=== PATIENT | female | born 1970 | race Caucasian/White ===

== ENCOUNTER 2020-03-18 09:47 | Emergency (ER) | payer OTHER, SELFPAY ==
--- NOTE | ~2020-03-18 | XR_ITS ---
EXAMINATION: XR hip RT 2V w AP pelvis, XR knee RT min 4V, XR femur RT min 2V DATE: 03/18/2020 10:34 INDICATION: Right leg pain post hyperextension injury TECHNIQUE: 1. Anteroposterior view of the pelvis and anteroposterior, frog leg and cross-table lateral views of the right hip were obtained. 2. AP and lateral views of the right femur were obtained on overlapping proximal and distal images. 3. AP, left and right oblique and crosstable lateral views of the right knee were obtained. COMPARISON: None. FINDINGS: Bone alignment is normal in the pelvis and throughout the visualized right leg. No fracture. Right kn ee and bilateral hip joint spaces are normal. Moderate to severe spondylosis at the lumbosacral junct ion. Soft tissues are unremarkable. No right knee joint effusion. IMPRESSION: 1. No right knee joint effusion or acute osseous abnormality. Reviewed, dictated and finalized at location A. IMPRESSION: 1. No right knee joint effusion or acute osseous abnormality. IMPRESSION: 1. No right knee joint effusion or acute osseous abnormality.
--- NOTE | ~2020-03-18 | XR_ITS ---
EXAMINATION: XR lumbar spine 2-3V DATE: 03/18/2020 11:08 INDICATION: Low back pain post fall TECHNIQUE: Anteroposterior and lateral views of the lumbar spine, and cone-down lateral view of the l umbosacral junction were obtained. COMPARISON: None. FINDINGS: Alignment is normal. Vertebral body heights are normal. No evident fractures. Disc heights are normal . Moderate to severe facet osteoarthritis at L5-S1. Mild facet osteoarthritis the more cephalad lumba r spine. Minimal bilateral hip and sacroiliac osteoarthritis. IMPRESSION: 1. Lumbar facet osteoarthritis, moderate severity at the lumbosacral junction, otherwise mild. No dinora dent acute osseous abnormality. Reviewed, dictated and finalized at location A. IMPRESSION: 1. Lumbar facet osteoarthritis, moderate severity at the lumbosacral junction, otherwise mild. No evident acute osseous abnormality.
[2020-03-18 09:52] VITALS: BP 175/122; PULSE 86; RESP 18; TEMP 36.7; O2SAT 100
--- NOTE | 2020-03-18 10:10 | ED.GENADULT ---
HPI - General Adult General Chief complaint: Fall Stated complaint: Fall Time Seen by Provider: 03/18/20 10:10 Source: patient Mode of arrival: ambulatory Limitations: no limitations History of Present Illness HPI narrative: 49-year-old female patient presents to the [facility] with complaints of right knee pain. Patient states that this morning she was walking her dog and felt that her knee gave out and went backwards and she fell. Patient states that she did hit the left side of her face onto the concrete but denies losing consciousness. Patient continues to complain of pain and states that she feels that her right knee is unstable. Patient states that she is also having pain up her thigh and into her hip. Patient states that she was only able to get up after the fall with help. Patient states that she felt very unstable when trying to walk. Denies any numbness or tingling to the leg. Patient denies any neck or back pain. Patient states that her pain currently at rest is 2 out of 10. Patient states she did take some ibuprofen prior to arrival today. Related Data Home Medications Medication Instructions Recorded Confirmed citalopram 20 mg PO 03/18/20 hydrochlorothiazide 12.5 mg PO 03/18/20 losartan 100 mg PO 03/18/20 Allergies Allergy/AdvReac Type Severity Reaction Status Date / Time No Known Allergies Allergy Verified 03/18/20 09:48 Review of Systems Review of Systems: Narrative: CONSTITUTIONAL: Denies fever, chills, or sweats. EYES: Denies visual changes, redness, or discharge. ENT: Denies rhinorrhea, congestion, sore throat, or otalgia. CARDIOVASCULAR: Denies chest pain, palpitations, or edema. RESPIRATORY: Denies cough or dyspnea. GASTROINTESTINAL: Denies abdominal pain, nausea, vomiting, or diarrhea. GENITOURINARY: Denies dysuria or hematuria. SKIN: Denies rash or itching. MUSCULOSKELETAL: Denies back pain, joint pain, or myalgia. Positive right knee, right femur and right hip pain. NEUROLOGIC: Denies headache, numbness, or weakness. PSYCHIATRIC: Denies anxiety or depression. [facility] Social History Social History Gender identity (if verbalized by the patient): Male Comments At the time of my signature I agree with nursing past medical history, surgical, social, and family history. There is no relevant family history pertinent to the presenting complaint. Exam Narrative: Exam Narrative: GENERAL: Well-appearing, well-nourished, and in no acute distress. HEAD: Normocephalic, atraumatic. Abrasions to left cheek and above left eyebrow EYES: PERRLA and EOMI. ENT: Nares clear, no rhinorrhea or epistaxis. Mucous membranes moist. NECK: Supple, no lymphadenopathy. No surface trauma, no soft tissue or muscle tenderness or spasm noted. Trachea midline. No subq emphysema or crepitus. No alina tenderness, step-offs or deformity to firm Palpation at posterior midline. FROM without limitation or pain, normal flexion, extension,Lateral bending, rotation, and axial load. CHEST: Clear to auscultation. No respiratory distress. HEART: Regular rate and rhythm. No murmur heard. Normal peripheral pulses. ABDOMEN: Soft, nontender, nondistended, normal active bowel sounds. EXTREMITIES: Patient is unable to bear weight and ambulate on R knee without pain. No surface trauma, STS. No overlying erythema or warmth. The R knee is without obvious asymmetry or deformity when compared to the L knee. Patient is able to do deep knee bend with symmetry, fully extend knee, internal and external rotation. Patient does have increase in pain when trying to fully extend the right knee. No tendernss to palpation of the patella. There does appear to be possibly an effusion with positive bowel meant to the right proximal knee. No tenderness over the infrapatellar tendon. No tenderness over the medial or lateral joint lone or to the medial or lateral tibial plateaus. no tenderness over the proxima
== END 2020-03-18 12:00 | disposition home or self-care (01) ==
PROVIDERS: Emergency Provider General Practice; PCP Internal Medicine
DX: S83.91XA Sprain of unspecified site of right knee, initial encounter (principal); I10 Essential (primary) hypertension; F32.9 Major depressive disorder, single episode, unspecified; Z85.828 Personal history of other malignant neoplasm of skin; M47.816 Spondylosis without myelopathy or radiculopathy, lumbar region; W01.0XXA Fall on same level from slipping, tripping and stumbling without subsequent striking against object, initial encounter; Y93.K1 Activity, walking an animal
CPT/HCPCS: 72100; 73502; 73552; 73564; 99284